=== PATIENT | male | born 1980 | race Caucasian/White ===

== ENCOUNTER 2020-01-18 14:56 | Emergency (ER) | payer SELFPAY ==
[~2020-01-18] VITALS: Ht 188 cm; Wt 129.2 kg
[2020-01-18] MEDS ORDERED: CYCLOBENZAPRINE 10 MG TABLET PO ONE (15:30)
[2020-01-18] MEDS ORDERED: KETOROLAC 30 MG/1 ML IM ONE (15:30)
[2020-01-18 15:54] LABS: BASOPHILS # (AUTO) 0.08 x10^3/uL (0-0.1); BASOPHILS % (AUTO) 1 % (0-1); EOSINOPHILS # (AUTO) 0.29 x10^3/uL (0-0.4); EOSINOPHILS % (AUTO) 3 % (1-7); LYMPHOCYTES # (AUTO) 3.76 x10^3/uL (1-3.4); LYMPHOCYTES % (AUTO) 33 % (22-44); MD NO; MEAN CORPUSCULAR HEMOGLOBIN 28.8 pg (27.5-34.5); MEAN CORPUSCULAR HGB CONC 32.7 g/dL (33.2-36.2); MEAN CORPUSCULAR VOLUME 88.2 fL (81-97); MONOCYTES # (AUTO) 0.97 x10^3/uL (0.2-0.8); MONOCYTES % (AUTO) 8 % (2-9); NEUTROPHILS # (AUTO) 6.47 x10^3/uL (1.8-6.8); NEUTROPHILS % (AUTO) 56 % (42-75); PLATELET COUNT 342 x10^3/uL (130-400); RED BLOOD COUNT 5.15 x10^6/uL (4.38-5.82)
[2020-01-18 15:58] LABS: ALANINE AMINOTRANSFERASE 32 U/L (12-78); ANION GAP 5 mmol/L (5-15); CALCIUM 9.7 mg/dL (8.5-10.1); CHLORIDE 105 mmol/L (98-107); CREATININE 1.15 mg/dL (0.7-1.3)
--- NOTE | 2020-01-18 16:00 | NUR ---
PT REFUSED TORADOL AND FLEXERIL.
[2020-01-18 16:02] LABS: ALKALINE PHOSPHATASE 75 U/L (45-117); BILIRUBIN,TOTAL 0.6 mg/dL (0.2-1.0); TROPONIN I < 0.015 ng/mL (0.000-0.045)
--- NOTE | 2020-01-18 16:32 | NUR ---
PT AMBULATED WELL TO RADIOLOGY AT 1610.
--- NOTE | 2020-01-18 16:33 | NUR ---
PT'S SISTER, ELOISA, CALLED. PT ASKED THAT FAMILY NOT BE UPDATED ON POC, EXPLAINED THIS TO SISTER. PT ALSO REFUSED CTA.
--- NOTE | 2020-01-18 16:43 | NUR ---
PT REFUSING CTA. NA AMIN AT BEDSIDE DISCUSSING POC WITH PATIENT.
[2020-01-18] MEDS ORDERED: OMNIPAQUE 350 MG/ML, 75ML BOTTLE ONE (17:21)
[2020-01-18] MEDS ORDERED: RIVAROXABAN 20 MG TABLET PO ONE (18:00)
[2020-01-18] MEDS ORDERED: RIVAROXABAN 20 MG TABLET ONE (18:24)
[2020-01-18 18:29] VITALS: BP 133/83
== END 2020-01-18 19:03 | disposition home or self-care (01) ==
LOC: ED 17:22
DX: I26.99 Other pulmonary embolism without acute cor pulmonale (principal); F17.210 Nicotine dependence, cigarettes, uncomplicated; R11.0 Nausea; R00.0 Tachycardia, unspecified
CPT/HCPCS: 36415; 71046; 71275; 80053; 84484; 85025; 85379; 93005; 99285; 99406; Q9967